=== PATIENT | male | born 1965 | race Caucasian/White ===

== ENCOUNTER 2017-09-28 20:42 | Emergency (ER) | payer MEDICAID ==
[~2017-09-28] VITALS: Ht 182.9 cm; Wt 74.0 kg
[2017-09-29 00:40] VITALS: BP 115/70
[2017-09-29 06:54] LABS: CHLORIDE 107 mEq/L (98-107)
[2017-09-29 06:56] LABS: ETHANOL BLOOD 192 mg/dL
[2017-09-29 06:57] LABS: HEMATOCRIT. 36.4 % (42.0-52.0); HEMOGLOBIN. 11.8 g/dL (14.0-18.0); MEAN CORPUSCULAR HEMOGLOBIN 31.1 pg (28.0-32.0); MEAN PLATELET VOLUME 7.5 fl (7.4-10.4); PLATELET 267 x1000/uL (130-400); RED BLOOD CELL COUNT 3.79 mill/uL (4.7-6.1); RED CELL DISTRIBUTION WIDTH 19.4 % (11.6-14.6)
[2017-09-29 07:29] LABS: PROTHROMBIN TIME 10.2 sec (9.4-11.6)
[2017-09-29 09:15] LABS: PLATELET ESTIMATE NORMAL
== END 2017-09-29 04:40 | disposition home or self-care (01) ==
LOC: ER 20:42
DX: F10.129 Alcohol abuse with intoxication, unspecified (principal); F12.10 Cannabis abuse, uncomplicated; F17.200 Nicotine dependence, unspecified, uncomplicated; Y90.9 Presence of alcohol in blood, level not specified
CPT/HCPCS: 36415; 70450; 71045; 80053; 83605; 84484; 85025; 85610; 93005; 99285; G0482

== ENCOUNTER 2018-12-18 10:55 | Emergency (ER) | payer MEDICAID ==
[~2018-12-18] VITALS: Ht 175.3 cm; Wt 86.0 kg
[2018-12-18] MEDS ORDERED: SODIUM CHLORIDE 0.9% 1,000 ML IV ONE (11:06)
[2018-12-18] MEDS ORDERED: ONDANSETRON HCL 4MG/2ML INJ IV STA (11:06)
[2018-12-18] MEDS ORDERED: FOLIC ACID 1 MG, THIAMINE HCL 100 MG, MVI, ADULT NO.1 10 ML in DEXTROSE 5% WATER 1,000 ML IV ONE ×4 (11:15)
[2018-12-18 11:59] LABS: *AMPHETAMINES SCREEN URINE NEGATIVE (NEGATIVE); *BARBITURATES SCREEN URINE NEGATIVE (NEGATIVE)
[2018-12-18 12:00] LABS: *BENZODIAZEPINES SCREEN URINE PRESUMTIVE POSITIVE (NEGATIVE); *COCAINE SCREEN URINE NEGATIVE (NEGATIVE)
[2018-12-18 12:03] LABS: CANNABINOID URINE SCREEN PRESUMTIVE POSITIVE (NEGATIVE)
[2018-12-18 12:04] LABS: METHADONE URINE SCREEN NEGATIVE (NEGATIVE); OPIATES URINE SCREEN NEGATIVE (NEGATIVE)
[2018-12-18 12:05] LABS: PHENCYCLIDINE URINE SCREEN NEGATIVE (NEGATIVE)
[2018-12-18] MEDS ORDERED: LORAZEPAM 2MG/ML CPJ IV ONE (12:15)
[2018-12-18 12:18] LABS: BASOPHILS % 0.6 % (0.0-2.0); EOSINOPHILS % 0.9 % (0.0-5.0); HEMOGLOBIN. 14.1 g/dL (14.0-18.0); LYMPHOCYTES % 22.3 % (20.0-50.0); MEAN CORPUSCULAR HEMOGLOBIN 34.7 pg (28.0-32.0); MEAN CORPUSCULAR VOLUME 103.3 fL (80.0-94.0); MEAN PLATELET VOLUME 6.2 fl (7.4-10.4); MONOCYTES % 12.9 % (2.0-8.0); NEUTROPHILS % 63.3 % (40.0-76.0); PLATELET 239 x1000/uL (130-400); RED BLOOD CELL COUNT 4.07 mill/uL (4.7-6.1); RED CELL DISTRIBUTION WIDTH 15.1 % (11.6-14.6)
[2018-12-18 12:22] LABS: CHLORIDE 104 mEq/L (98-107)
[2018-12-18 12:30] LABS: CREATINE KINASE 100 IU/L (39-308)
[2018-12-18 12:59] LABS: ETHANOL BLOOD 393 mg/dL
[2018-12-18 18:45] VITALS: BP 113/83
== END 2018-12-18 20:50 | disposition home or self-care (01) ==
LOC: ER 11:23
DX: G93.40 Encephalopathy, unspecified (principal); T51.91XA Toxic effect of unspecified alcohol, accidental (unintentional), initial encounter; S00.91XA Abrasion of unspecified part of head, initial encounter; S09.8XXA Other specified injuries of head, initial encounter; R27.0 Ataxia, unspecified; R56.9 Unspecified convulsions; X58.XXXA Exposure to other specified factors, initial encounter; Y93.89 Activity, other specified; Y92.9 Unspecified place or not applicable; Z86.73 Personal history of transient ischemic attack (TIA), and cerebral infarction without residual deficits
CPT/HCPCS: 36415; 70450; 80053; 80305; 80320; 82550; 82565; 83605; 83690; 83880; 84443; 84484; 85025; 87040; 87086; 93005; 96361; 96365; 96366; 96375; 99284; J2060; J2405; J3411; J3490; J7030; J7070; G0480

== ENCOUNTER 2019-01-03 18:11 | Emergency (ER) | payer MEDICAID ==
[~2019-01-03] VITALS: Ht 167.6 cm; Wt 77.0 kg
[2019-01-03 19:43] LABS: BASOPHILS % 0.5 % (0.0-2.0); EOSINOPHILS % 0.7 % (0.0-5.0); HEMATOCRIT. 42.7 % (42.0-52.0); HEMOGLOBIN. 14.8 g/dL (14.0-18.0); LYMPHOCYTES % 18.2 % (20.0-50.0); MEAN CORPUSCULAR HEMOGLOBIN 35.8 pg (28.0-32.0); MEAN CORPUSCULAR VOLUME 103.8 fL (80.0-94.0); MEAN PLATELET VOLUME 6.9 fl (7.4-10.4); MONOCYTES % 8.9 % (2.0-8.0); NEUTROPHILS % 71.7 % (40.0-76.0); PLATELET 255 x1000/uL (130-400); RED BLOOD CELL COUNT 4.12 mill/uL (4.7-6.1); RED CELL DISTRIBUTION WIDTH 15.5 % (11.6-14.6)
[2019-01-03 19:46] LABS: CHLORIDE 104 mEq/L (98-107)
[2019-01-03 19:49] LABS: ETHANOL BLOOD 239 mg/dL
[2019-01-04] MEDS: CHLORDIAZEPOXIDE 25MG CAPSULE PO ONE (01:39)
[2019-01-04 03:00] VITALS: BP 91/59
== END 2019-01-04 04:28 | disposition home or self-care (01) ==
LOC: ER 18:11
DX: F10.129 Alcohol abuse with intoxication, unspecified (principal); F12.10 Cannabis abuse, uncomplicated; Z86.73 Personal history of transient ischemic attack (TIA), and cerebral infarction without residual deficits; Y90.9 Presence of alcohol in blood, level not specified
CPT/HCPCS: 36415; 80320; 99284; G0480

== ENCOUNTER 2019-01-04 10:05 | Emergency (ER) | payer MEDICAID ==
[~2019-01-04] VITALS: Ht 172.7 cm; Wt 75.0 kg
[2019-01-04 11:28] VITALS: BP 100/62
== END 2019-01-04 11:27 | disposition left against medical advice (07) ==
LOC: ER 10:05
DX: F10.229 Alcohol dependence with intoxication, unspecified (principal); Z86.73 Personal history of transient ischemic attack (TIA), and cerebral infarction without residual deficits; R40.2410 Glasgow coma scale score 13-15, unspecified time; F12.10 Cannabis abuse, uncomplicated; Y90.9 Presence of alcohol in blood, level not specified
CPT/HCPCS: 99283

== ENCOUNTER 2019-01-04 14:45 | Emergency (ER) | payer MEDICAID ==
[~2019-01-04] VITALS: Ht 167.6 cm; Wt 78.0 kg
[2019-01-04 19:10] VITALS: BP 125/80
== END 2019-01-04 19:10 | disposition home or self-care (01) ==
LOC: ER 14:45
DX: F10.229 Alcohol dependence with intoxication, unspecified (principal); R56.9 Unspecified convulsions; F12.10 Cannabis abuse, uncomplicated; Z86.73 Personal history of transient ischemic attack (TIA), and cerebral infarction without residual deficits; Y90.7 Blood alcohol level of 200-239 mg/100 ml
CPT/HCPCS: 36415; 80320; 99283; G0480